=== PATIENT | female | born 1955 | race Two or more races ===

== ENCOUNTER 2024-12-02 04:35 | Emergency (ER) | payer OTHER ==
[~2024-12-02] VITALS: Ht 160 cm; Wt 90.5 kg
--- NOTE | 2024-12-02 04:49 | ED.PDOC ---
Back pain HPI HPI Comments PT CAME TO THE ER WITH CC OF RIGHT LOWER BACK PAIN X3DAYS, PT STATES, "IT JUST KEEPS GETTING WORSE". PATIENT NOTES SHE HAS ALSO BEEN EXPERIENCING NAUSEA WITH HER PAIN. PT DENIES ANY ISSUES WITH URINATION AT THIS TIME. PT IS A&OX4 RR EVEN REGULAR NO DISTRESS NOTED AT THIS TIME. PT DENIES V/D CP SOB, LOSS OF BOWEL OR BLADDER CONTROL, SADDLE ANESTHESIA, NUMBNESS OR WEAKNESS. NO OTHER SYMPTOMS REPORTED AT THIS TIME OF CARE. Chief Complaint: Back Pain Time Seen by MD: 04:43 Reviewed Notes: Nurses Notes, Medications, Allergies Allergies: Coded Allergies: NO KNOWN ALLERGIES (Unverified , 12/02/24) Home Meds Active Scripts Tramadol HCl (Tramadol HCl) 50 Mg Tab, 50 MG PO BID, #20 TAB Prov:CLEOPATRA HORN 12/02/24 Ciprofloxacin Hcl (Cipro) 500 Mg Tab, 1 TAB PO BID, #20 TAB Prov:CLEOPATRA HORN 12/02/24 Tamsulosin Hcl (Flomax) 0.4 Mg Cap, 1 CAP PO DAILY, #24 CAP Prov:CLEOPATRA HORN 12/02/24 Information Source: Patient Mode of Arrival: Ambulatory Timing: Days Duration: Since onset, Days Location of Back pain: (R) Lumbar Severity: Moderate Prehospital treatment: None Quality: Aching, Cramping, Sharp Onset: Spontaneous History of: None Modifying Factors: Movement Associated signs and symptoms: None Past Medical History PAST MEDICAL HISTORY: Denies Surgical History: Denies all surgeries [employer] History: No Pertinent [employer] History, Uterine Fibroids Family History Family History: Reviewed,noncontributory to illness Social History Smoker: Non-Smoker Alcohol: Denies ETOH Use Drugs: Denies Drug Use Lives In: Home Constitutional: denies: chills, diaphoresis, fatigue, fever, malaise, sweats, weakness, others EENTM: denies: blurred vision, double vision, ear bleeding, ear discharge, ear drainage, ear pain, ear ringing, eye pain, eye redness, hearing loss, mouth pain, mouth swelling, nasal discharge, nose bleeding, nose congestion, nose pain, photophobia, tearing, throat pain, throat swelling, voice changes, others Respiratory: denies: cough, hemoptysis, orthopnea, SOB at rest, shortness of breath, SOB with excertion, stridor, wheezing, others Cardiovascular: denies: chest pain, dizzy spells, diaphoresis, Dyspnea on exertion, edema, irregular heart beat, left arm pain, lightheadedness, palpitations, PND, syncope, others Gastrointestinal: denies: abdomen distended, abdominal pain, blood streaked bowels, constipated, diarrhea, dysphagia, difficulty swallowing, hematemesis, melena, nausea, poor appetite, poor fluid intake, rectal bleeding, rectal pain, vomiting, others Genitourinary: denies: abnormal vagina bleeding, burning, dyspareunia, dysuria, flank pain, frequency, hematuria, incontinence, pain, , vagina discharge, urgency, others Neurological: denies: dizziness, fainting, headache, left sided numbness, left sided weakness, numbness, paresthesia, pre-existing deficit, right sided numbness, right sided weakness, seizure, speech problems, tingling, tremors, weakness, others Musculoskeletal: reports: back pain, muscle pain; denies: gout, joint pain, joint swelling, muscle stiffness, neck pain, others Integumetry: denies: bruises, change in color, change in hair/nails, dryness, laceration, lesions, lumps, rash, wounds, others Allergic/Immunocompromised: denies: Difficulty Healing, Frequent Infections, Hives, Itching, others Hematologic/Lymphatic: denies: anemia, blood clots, easy bleeding, easy bruising, swollen glands, others Endocrine: denies: excessive hunger, excessive sweating, excessive thirst, excessive urination, flushing, intolerance to cold, intolerance to heat, unexplained weight gain, unexplained weight loss, others Psychiatric: denies: anxiety, bipolar disorder, depression, hopeless, panic disorder, schizophrenia, sleepless, suicidal, others All Other Systems: Reviewed and Negative (SEE HPI) Physical Exam General Appearance: No Apparent Distress, Normal HEENT: PERRL/EOMI, Pharynx Normal Neck: Full Range of Motion, Non-Tender Respiratory: Lungs Clear, No Respiratory Distress, Normal Breath Sounds Cardiovascular: No Edema, No JVD, No Murmur, No Gallop, Normal Peripheral Pulses, Regular Rate/Rhythm Breast Exam: Deferred Gastrointestinal: No Organomegaly, Non Tender, No Pulsatile Mass, Normal Bowel Sounds, Soft, Other (NEGATIVE CVA TENDERNESS) Genitalia: Deferred Pelvic: Deferred Rectal: Deferred Extremities: Normal capillary refill, Normal range of motion, No pedal edema Musculoskeletal : Location: Right Extremity Location: Back Apperance: Tenderness: Moderate (RIGHT LOW BACK, NO BONY TENDERNESS, SWELLING AND DEFORMITY. NO CVA TENDERNESS. ) Neurologic: Alert, No Motor Deficits, Normal Affect, Normal Mood, No Sensory Deficits Cerebellar Function: Normal Reflexes: NOT DONE Skin: Dry, Normal Color, Warm Peripheral Pulses: 2+ carotid (R), 2+ carotid (L) Lymphatic: No Adenopathy Was a procedure done? Was a procedure done?: No Back Pain Differential Dx Differential Diagnosis: Fracture, Musculoskeletal Pain, Pyelonephritis, Strain, Urinary Obstruction, Urolithiasis X-Ray, Labs, Meds, VS Vital Signs Date Time Temp Pulse Resp B/P (MAP) Pulse Ox O2 Delivery O2 Flow Rate FiO2 12/02/24 07:55 98.1 63 18 142/68 (92) 98 98.1 12/02/24 04:57 81 19 156/82 (106) 98 12/02/24 04:57 Room Air* 0 21 12/02/24 04:37 97.6 81 18 133/81 98 97.6 Lab Test 12/02/24 07:12 12/02/24 05:10 Range/Units White Blood Count 10.9 H 4.4-10.8 10^3/uL Red Blood Count 5.15 4.0-5.20 10^6/uL Hemoglobin 15.7 12.2-16.2 g/dL Hematocrit 45.7 36.0-46.0 % Mean Corpuscular Volume 88.7 80.0-100.0 fL Mean Corpuscular Hemoglobin 30.4 28.0-32.0 pg Mean Corpuscular Hemoglobin Concent 34.3 32.0-36.0 g/dL Red Cell Distribution Width 14.1 11.8-14.3 % Platelet Count 317 140-450 10^3/uL Mean Platelet Volume 8.8 6.9-10.8 fL Neutrophils (%) (Auto) 88.5 H 37.0-80.0 % Lymphocytes (%) (Auto) 8.9 L 10.0-50.0 % Monocytes (%) (Auto) 2.3 0.0-12.0 % Eosinophils (%) (Auto) 0.0 0.0-7.0 % Basophils (%) (Auto) 0.3 0.0-2.0 % Neutrophils # (Auto) 9.6 H 1.6-8.6 10 ^3/uL Lymphocytes # (Auto) 1.0 0.4-5.4 10 ^3/uL Monocytes # (Auto) 0.2 0-1.3 10 ^3/uL Eosinophils # (Auto) 0 0-0.8 10 ^3/uL Basophils # (Auto) 0 0-0.2 10 ^3/uL Nucleated Red Blood Cells 0.0 % Sodium Level 140 136-145 mmol/L Potassium Level 4.1 3.5-5.1 mmol/L Chloride Level 104 98-107 mmol/L Carbon Dioxide Level 27 20-31 mmol/L Anion Gap 9 5-15 Blood Urea Nitrogen 10 9-23 mg/dL Creatinine 0.80 0.550-1.02 mg/dL Glomerular Filtration Rate Calc 81 >90 mL/min BUN/Creatinine Ratio 12.5 10.0-20.0 Serum Glucose 116 H 74-106 mg/dL Calcium Level 9.9 8.7-10.4 mg/dL Urine Color Yellow Yellow Urine Clarity Turbid H Clear Urine pH 6.0 5.0-9.0 Urine Specific [place] 1.047 H 1.001-1.035 Urine Protein 1+ H Negative Urine Ketones Trace Negative Urine Blood Negative Negative /uL Urine Nitrite Negative Negative Urine Bilirubin Negative Negative Urine Urobilinogen 2 H Negative mg/dL Urine Leukocyte Esterase 2+ Negative /uL Urine RBC 20 0 - 4 /hpf Urine Microscopic WBC 25 H 0-5 /HPF Urine Squamous Epithelial Cells Many <5 /hpf Urine Calcium Oxalate Crystals Many None Seen Urine Bacteria Few H None Seen /hpf Urine Hyaline Casts Few 0 - 2 /lpf Urine Mucus Few None Seen Urine Glucose Normal Normal mg/dL Current Medications Medications (Trade) Dose Ordered Sig/Vilma Route Start Time Stop Time Status Last Admin Ketorolac Tromethamine (Toradol Injection) 60 mg ONCE ONCE IM 12/02/24 04:45 12/02/24 04:46 DC 12/02/24 05:05 Dexamethasone Sodium Phosphate (Decadron Injection) 10 mg ONCE ONCE IM 12/02/24 04:45 12/02/24 04:46 DC 12/02/24 05:05 Acetaminophen/ Hydrocodone Bitart ([place] 5/325MG Tab) 1 tab ONCE ONCE PO 12/02/24 04:45 12/02/24 04:46 DC 12/02/24 05:05 INDICATION: left side low back pain TECHNIQUE: 4 views of the lumbar spine were obtained. COMPARISON: None FINDINGS: There are no acute fractures or subluxations. Vascular calcifications of the aorta. IMPRESSION: No acute fracture or subluxation. ATED BY: SONNY ROBLERO MD DICTATED DATE/TIME: 12/02/24515 SIGNED BY: SONNY ROBLERO MD SIGNED DATE/TIME: 12/02/24515 CC: CLINICAL INFORMATION: 69 years old, Female; RIGHT SIDE LOWER BACK PAIN, BLOOD IN THE URINE. TECHNIQUE: Axial CT images of the abdomen and pelvis were obtained without IV contrast. Coronal and sagittal reformatted images were obtained, reviewed, and stored. Evaluation of the parenchymal organs is limited without IV contrast. Evaluation of the bowel and mesentery is limited without oral contrast. All CT scans at this medical facility are performed using dose modulation techniques as appropriate to a performed exam including the following: Automated exposure control was utilized; adjustment of the MA and/or KV according to patient size; and use of iterative reconstruction technique. CTDIvol = 19.34 mGy DLP = 910.81 mGy-cm COMPARISON: None FINDINGS: Lung bases: Lung bases are clear. Liver: Hepatic steatosis Biliary: Cholecystectomy. There is pneumobilia in the left hepatic bile duct. Spleen: Unremarkable. Pancreas: Grossly unremarkable in its noncontrast enhanced appearance. Adrenal glands: Unremarkable. No mass. Kidneys: No hydronephrosis. Small nonobstructing calculus in the upper pole of the right kidney measuring up to 2 mm. No obstructing calculi. Aorta/Vascular: Dense atherosclerotic calcification. No abdominal aortic aneurysm Retroperitoneum: No mass or lymphadenopathy. Bowel/mesentery: No small bowel obstruction. Appendix is visualized and appears unremarkable. Scattered colonic diverticula without adjacent inflammatory changes to suggest diverticulitis. Pelvic organs: Multiple calcified masses in the uterus, most likely fibroids, with the largest measuring up to approximately 3.5 cm, although not optimally evaluated on CT. Left ovary appears prominent, but not well evaluated on CT. Bladder: Underdistended and not well evaluated. Abdominal wall: No mass or hernia. Bones: No acute fracture or suspicious intraosseous lesion. IMPRESSION: 1. Small nonobstructing right renal calculus. No hydronephrosis or obstructing calculi visualized. 2. Bladder is underdistended and not well evaluated. 3. Multiple calcified uterine fibroids. 4. Mild prominence of the left ovary, which is nonspecific and not well evaluated on CT. Correlate with clinical findings. If clinically indicated, pelvic ultrasound could be obtained to further evaluate. 5. Scattered colonic diverticula without adjacent inflammatory changes to suggest diverticulitis. 6. Pneumobilia, may be seen after prior sphincterotomy or recent biliary intervention. Infectious etiology would be less likely but not completely excluded in the appropriate clinical setting. Correlate with clinical findings. 7. Additional findings as described above. ATED BY: ARNEL MOSER DO DICTATED DATE/TIME: 12/02/24731 SIGNED BY: ARNEL MOSER DO SIGNED DATE/TIME: 12/02/24731 CC: X-Ray, Labs, Meds, VS Comment External Medical Records Reviewed: [None] Independent historians: [None] Social Determinants of Health: [None] Labs Ordered: UA, CBC, BMP Reviewed and interpreted results: LEUKO 2+, URINE CALCIUM OXALATE CRYSTALS MANY Radiology imaging ordered: XR L-Spine, CT Abd/Pel Treatments ordered: Toradol 60 mg IM, Decadron 10 mg IM, [place] 5/325 mg PO Procedures Performed: None Critical Care Time: None 0600: PATIENT CARE WAS SIGNED OUT TO ME, MARLENE HORN PA-C AT 0600 DUE TO SHIFT CHANGE. I have discussed the patient with the attending physician Dr. Rosales and he agrees with the patient's plan of care and disposition. Based on history of present illness, and physical exam, patient will be discharged home. Discussed plan for discharge home with Rx [CIPRO 500MG, FLOMAX AND ULTRAM]. Medication warnings given. SHARED DECISION MAKING: PATIENT INSTRUCTED TO FOLLOW UP WITH PRIMARY CARE PROVIDER IN 1-2 DAYS FOR RE-EVALUATION OF SYMPTOMS. PATIENT VERBALIZES UNDERSTANDING TO RETURN TO ED FOR NEW OR WORSENING SYMPTOMS OR IF FOLLOW UP WITH PCP CANNOT BE OBTAINED. PATIENT FEELS COMFORTABLE GOING HOME AT THIS TIME. ALL QUESTIONS ADDRESSED AT TIME OF DISCHARGE. Images Reviewed?: Images reviewed and evaluated by me Time of 1ST Reevaluation: 04:49 Reevaluation 1ST: Unchanged Time of 2ND Reevaluation: 07:52 Reevaluation 2ND: Improved Patient Education/Counseling: Diagnosis, Treatment, Need For Follow Up Family Education/Counseling: Diagnosis, Treatment, Need For Follow Up Medical Screening: No EMC Exist At This Time Assigned to Dr. MARLENE HORN PA-C Change of Shift?: Yes SEPSIS Sepsis Screen Date sepsis recognized/suspect: Dec 02, 2024 Time Sepsis recognized/suspect: 440 Recent Procedure: No On Antibiotic Therapy: No Respiratory Rate >20: No Heart Rate >90: No Temp<36 C (96.8 F) or >38.3 C: No SBP <90 or MAP <65 mmHG: No New Acute Mental Status Change: No Is the patient on CPAP, BIPAP,: No Physician Orders Lumbar Spine 3 View (12/02/24 04:43) Ct Ab Pel Wo Con-No Oral Or Iv (12/02/24 06:45) Vital Signs Date Time Temp Pulse Resp B/P (MAP) Pulse Ox O2 Delivery O2 Flow Rate FiO2 12/02/24 07:55 98.1 63 18 142/68 (92) 98 98.1 12/02/24 04:57 81 19 156/82 (106) 98 12/02/24 04:57 Room Air* 0 21 12/02/24 04:37 97.6 81 18 133/81 98 97.6 Laboratory Tests Test 12/02/24 07:12 White Blood Count 10.9 10^3/uL (4.4-10.8) H Departure 1 Departure Time of Disposition: 08:00 Impression: Primary Impression: Left renal stone Additional Impressions: Uterine fibroid Qualified Codes: D25.9 - Leiomyoma of uterus, unspecified Acute UTI (urinary tract infection) Disposition: 01 HOME / SELF CARE / HOMELESS Condition: Stable Additional Instructions: Follow up with PCP in 1-2 days. Take medications as prescribed. Return to ED for worsening symptoms. e-Prescriptions Tramadol HCl (Tramadol HCl) 50 Mg Tab 50 MG PO BID, #20 TAB Prov: CLEOPATRA HORN 12/02/24 Ciprofloxacin Hcl (Cipro) 500 Mg Tab 1 TAB PO BID, #20 TAB Prov: CLEOPATRA HORN 12/02/24 Tamsulosin Hcl (Flomax) 0.4 Mg Cap 1 CAP PO DAILY, #24 CAP Prov: CLEOPATRA HORN 12/02/24 Discharged With: Spouse Critical Care Note Critical Care Time?: No Stability Stability form required: No I personally scribed for ER ([email or web address]) on 12/02/24 at 05:08. Electronically submitted by Rafael Garrido ([email or web address]). I personally scribed for ER ([email or web address]) on 12/02/24 at 06:53. Electronically submitted by Mauro Poe ([email or web address]). I personally scribed for ER ([email or web address]) on 12/02/24 at 07:09. Electronically submitted by Mauro Poe ([email or web address]). I personally scribed for CLEOPATRA HORN ([email or web address]) on 12/02/24 at 07:41. Electronically submitted by Mauro Poe ([email or web address]). ANICETO RAMIRES Dec 02, 2024 04:49 ER Dec 02, 2024 05:08 CLEOPATRA HORN Dec 02, 2024 07:13
[2024-12-02] MEDS: HYDROcodone-ACET 5/325MG TAB PO ONE (05:05)
[2024-12-02] MEDS: KETOROLAC TROMETH 60MG/2ML VIAL IM ONE (05:05)
--- NOTE | 2024-12-02 05:18 | DVH ---
INDICATION: left side low back pain TECHNIQUE: 4 views of the lumbar spine were obtained. COMPARISON: None FINDINGS: There are no acute fractures or subluxations. Vascular calcifications of the aorta. IMPRESSION: No acute fracture or subluxation.
[2024-12-02] MEDS ORDERED: METH-1181 PO (05:40)
[2024-12-02] MEDS ORDERED: METH4PAK PO (05:40)
[2024-12-02 06:28] LABS: Urine Protein, UAD 1+ (Negative)
[2024-12-02 07:24] LABS: Hematocrit 45.7 % (36.0-46.0); Hemoglobin 15.7 g/dL (12.2-16.2); Mean Corpuscular Hemoglobin 30.4 pg (28.0-32.0); Mean Corpuscular Volume 88.7 fL (80.0-100.0); Nucleated Red Blood Cells % 0.0 %
[2024-12-02 07:30] LABS: Chloride 104 mmol/L (98-107); Potassium 4.1 mmol/L (3.5-5.1); Sodium 140 mmol/L (136-145)
[2024-12-02 07:31] LABS: Anion Gap 9 (5-15); Calcium 9.9 mg/dL (8.7-10.4); Carbon Dioxide 27 mmol/L (20-31)
--- NOTE | 2024-12-02 07:35 | DVH ---
CLINICAL INFORMATION: 69 years old, Female; RIGHT SIDE LOWER BACK PAIN, BLOOD IN THE URINE. TECHNIQUE: Axial CT images of the abdomen and pelvis were obtained without IV contrast. Coronal and s agittal reformatted images were obtained, reviewed, and stored. Evaluation of the parenchymal organs is limited without IV contrast. Evaluation of the bowel and mesentery is limited without oral contras t. All CT scans at this medical facility are performed using dose modulation techniques as appropriat e to a performed exam including the following: Automated exposure control was utilized; adjustment of the MA and/or KV according to patient size; and use of iterative reconstruction technique. CTDIvol = 19.34 mGy DLP = 910.81 mGy-cm COMPARISON: None FINDINGS: Lung bases: Lung bases are clear. Liver: Hepatic steatosis Biliary: Cholecystectomy. There is pneumobilia in the left hepatic bile duct. Spleen: Unremarkable. Pancreas: Grossly unremarkable in its noncontrast enhanced appearance. Adrenal glands: Unremarkable. No mass. Kidneys: No hydronephrosis. Small nonobstructing calculus in the upper pole of the right kidney measu ring up to 2 mm. No obstructing calculi. Aorta/Vascular: Dense atherosclerotic calcification. No abdominal aortic aneurysm Retroperitoneum: No mass or lymphadenopathy. Bowel/mesentery: No small bowel obstruction. Appendix is visualized and appears unremarkable. Scatte red colonic diverticula without adjacent inflammatory changes to suggest diverticulitis. Pelvic organs: Multiple calcified masses in the uterus, most likely fibroids, with the largest measur ing up to approximately 3.5 cm, although not optimally evaluated on CT. Left ovary appears prominent, but not well evaluated on CT. Bladder: Underdistended and not well evaluated. Abdominal wall: No mass or hernia. Bones: No acute fracture or suspicious intraosseous lesion. IMPRESSION: 1. Small nonobstructing right renal calculus. No hydronephrosis or obstructing calculi visualized. 2. Bladder is underdistended and not well evaluated. 3. Multiple calcified uterine fibroids. 4. Mild prominence of the left ovary, which is nonspecific and not well evaluated on CT. Correlate wi th clinical findings. If clinically indicated, pelvic ultrasound could be obtained to further evalua te. 5. Scattered colonic diverticula without adjacent inflammatory changes to suggest diverticulitis. 6. Pneumobilia, may be seen after prior sphincterotomy or recent biliary intervention. Infectious et iology would be less likely but not completely excluded in the appropriate clinical setting. Correlat e with clinical findings. 7. Additional findings as described above.
[2024-12-02 07:36] LABS: BUN/Creatinine Ratio 12.5 (10.0-20.0); Blood Urea Nitrogen 10 mg/dL (9-23)
[2024-12-02 07:37] LABS: Glucose 116 mg/dL (74-106)
[2024-12-02 07:55] VITALS: BP 142/68; PULSE 63; RESP 18; TEMP 98.1; O2SAT 98
[2024-12-02] MEDS ORDERED: TRAM-626 PO (07:55)
[2024-12-02] MEDS ORDERED: TAMS-35 PO (07:55)
[2024-12-02] MEDS ORDERED: CIPR-173 PO (07:55)
== END 2024-12-02 08:00 | disposition home or self-care (01) ==
LOC: ER 04:35
DX: N20.0 Calculus of kidney (principal); D25.9 Leiomyoma of uterus, unspecified; N39.0 Urinary tract infection, site not specified; Z79.899 Other long term (current) drug therapy
CPT/HCPCS: 36415; 72100; 74176; 80048; 81001; 85025; 96372; 99285; J1100; J1885